=== PATIENT | female | born 1970 | race Caucasian/White ===

== ENCOUNTER → 2022-09-09 | Outpatient (CLI) | payer BC ==
--- NOTE | 2022-09-10 08:52 | MM ---
Reason for Exam: Screening (asymptomatic). Patient History: Menarche at age 10. First Full-Term at age 20. Premenopausal. 2005, Bilateral Reduction. Sister had breast cancer, age 49. Risk Values: Mey 5 year model risk: 2.1%. NCI Lifetime model risk: 15.7%. Tissue Density: The breast tissue is heterogeneously dense. This may lower the sensitivity of mammography. Findings: Analyzed By CAD. There is no suspicious group of microcalcifications in either breast. There are 3 asymmetries demonstrated within the right breast. The first is demonstrated on the CC view in the outer right breast at anterior depth. Another one is demonstrated within the outer right breast on the CC view at anterior to middle depth. The final on the right breast is demonstrated in the upper right breast on the MLO view at posterior depth. Additional focal asymmetry within the upper outer left breast at middle depth. Overall Assessment: Incomplete: need additional imaging evaluation, BI-RAD 0 Management: Diagnostic Mammogram of both breasts. A clinical breast exam by your physician is recommended on an annual basis and results should be correlated with mammographic findings. [facility] will attempt to contact patient to return for supplemental views and ultrasound if indicated. Electronically signed and approved by: Benjamin Bazan D.O.
== END | disposition home or self-care (01) ==
LOC: MERGE 08-21 12:40 → RADMAMWWP 15:34
PROVIDERS: ATTEND Family Medicine
DX: Z12.31 Encounter for screening mammogram for malignant neoplasm of breast (principal); Z80.3 Family history of malignant neoplasm of breast
CPT/HCPCS: 77067

== ENCOUNTER → 2022-09-16 | Outpatient (CLI) | payer BC ==
--- NOTE | 2022-09-16 08:52 | MM ---
Reason for Exam: Additional evaluation requested from abnormal screening. Last screening mammogram was performed less than 1 month ago. Patient History: Menarche at age 10. First Full-Term at age 20. Premenopausal. 2004, Bilateral Reduction. Sister had breast cancer, age 49. Risk Values: Mey 5 year model risk: 2.1%. NCI Lifetime model risk: 15.7%. Prior Study Comparison: 09/09/2022 Bilateral MG screening mammo w CAD, [facility]. Tissue Density: There are scattered fibroglandular densities. Findings: Analyzed By CAD. Right breast 6-7 cm from the nipple posterior depth measuring 9 mm , it is posterior nipple line on CC and slightly superior on MLO view. Left breast 2-3 cm from the nipple upper outer aspect measuring 15 mm. Overall Assessment: Incomplete: need additional imaging evaluation, BI-RAD 0 Management: Diagnostic Breast Ultrasound of both breasts. A clinical breast exam by your physician is recommended on an annual basis and results should be correlated with mammographic findings. This exam should not preclude additional follow-up of suspicious palpable abnormalities. Results were given to the patient verbally at the time of exam. Electronically signed and approved by: Emory Toscano DO
--- NOTE | 2022-09-16 09:36 | USB ---
Reason for Exam: Additional evaluation requested from abnormal screening. Patient History: Menarche at age 10. First Full-Term at age 20. Premenopausal. 2005, Bilateral Reduction. Sister had breast cancer, age 49. Risk Values: Mey 5 year model risk: 2.1%. NCI Lifetime model risk: 15.7%. Technique: Method: Targeted. Patient Position: Supine. Prior Study Comparison: 09/09/2022 Bilateral MG screening mammo w CAD, [facility]. Findings: The upper outer quadrant of the left breast, the periareolar of the right breast and the retroareolar of both breasts were scanned. Imaged: Ultrasound imaging of: All 4 quadrants, the retroareolar region and axilla. * Left breast 2:00 3 cm from the nipple is a hypoechoic irregular shaped oval mass measuring 1.4 x 1.2 x 0.9 cm mass. * Smaller adjacent lesion measuring up to 5 mm cyst immediately adjacent to it. * Right breast 12:00 6 cm nipple measuring up to 6 mm with possible thin internal septation.Imaged: Ultrasound imaging of: Area of concern, retroareolar region and axilla. * Left breast 2:00 3 cm from the nipple is a hypoechoic irregular shaped oval mass measuring 1.4 x 1.2 x 0.9 cm mass. * Smaller adjacent lesion measuring up to 5 mm cyst immediately adjacent to it. * Right breast 12:00 6 cm nipple measuring up to 6 mm with possible thin internal septation. Overall Assessment: Highly suggestive of malignancy, BI-RAD 5 Management: Ultrasound Core Biopsy of the left breast. Diagnostic Breast Ultrasound of the right breast in 6 months. * Biopsy of left breast 2:00 3 cm from nipple mass. Small lesion next to it could also be biopsied at this time. * Follow-up in 6 months for right breast suspected clustered cysts at 12:00 6 images from nipple. A clinical breast exam by your physician is recommended on an annual basis and results should be correlated with mammographic findings. This exam should not preclude additional follow-up of suspicious palpable abnormalities. Results were given to the patient verbally at the time of exam. Electronically signed and approved by: Emory Toscano DO
== END | disposition home or self-care (01) ==
LOC: RADMAMWWP 08:17
PROVIDERS: ATTEND Family Medicine
DX: N63.21 Unspecified lump in the left breast, upper outer quadrant (principal); N60.02 Solitary cyst of left breast; R92.8 Other abnormal and inconclusive findings on diagnostic imaging of breast; Z80.3 Family history of malignant neoplasm of breast
CPT/HCPCS: 77062; 77066

== ENCOUNTER → 2022-09-24 | Day surgery (SDC) | payer BC ==
--- NOTE | 2022-09-30 10:57 | MM ---
Reason for Exam: Post Procedure Mammogram. Last screening mammogram was performed less than 1 month ago. Patient History: Menarche at age 10. First Full-Term at age 20. Premenopausal. 2004, Bilateral Reduction. Sister had breast cancer, age 49. Risk Values: Mey 5 year model risk: 2.1%. NCI Lifetime model risk: 15.7%. Prior Study Comparison: 09/09/2022 Bilateral MG screening mammo w CAD, [facility]. 09/16/2022 Bilateral US breast workup limited GEMA, [facility]. 09/16/2022 Bilateral MG 3D work up w/cad G[facility], [facility]. Tissue Density: Left: There are scattered fibroglandular densities. Pathology Description: Location: 2 o'clock. Marker Left Behind. Needle Type: Celero Cores: 2 Gauge: 12 The procedure of ultrasound guided core biopsy was explained to the patient. Benefits, alternatives, and risks were discussed. An informed consent was then obtained. The patient was placed in supine positioning for imaging and for the procedure. Preprocedure ultrasound redemonstrates a lobulated heterogeneous hypoechoic mass at 2:00 position 3 cm distance from nipple measuring near 1.2 cm long axis. The overlying skin was prepped and draped in usual sterile fashion. Lidocaine is used as anesthetic into the skin and subcutaneous tissue up to area of concern in the left breast. Under ultrasound guidance, a vacuo assisted biopsy gun device was used to obtain 2 core samples. Following this, a biopsy clip was left in lesion. The patient tolerated the procedure well without any immediate complication. The patient was kept in the radiology department for short stay after the procedure and then discharged home in stable condition. Postprocedure mammogram: The patient was transferred to mammography for physician ordered post procedure mammogram for clip placement verification. Successful deployment of clip at the area of mammogram concern is noted Impression: Successful, uncomplicated ultrasound guided core biopsy of area of concern in the left breast, full pathology results to follow. Intermediate index of suspicion noted at time of procedure. Pathology Results: Result: Benign, Fibroadenoma. LEFT BREAST, 2:00, ULTRASOUND GUIDED NEEDLE CORE BIOPSY: Fibroadenoma. Overall Assessment: Benign Assessment: MG diagnostic mammo LT wo CAD. - Left: Benign, BI-RAD 2. Management: Diagnostic Mammogram of the left breast in 6 months. Electronically signed and approved by: Steffen Jordan M.D.
== END ==
LOC: RADUSWWP 10:15
PROVIDERS: ATTEND Family Medicine
DX: D24.2 Benign neoplasm of left breast (principal); Z80.3 Family history of malignant neoplasm of breast
CPT/HCPCS: 88305; 77065; 19083; A4648

== ENCOUNTER → 2023-04-09 | Outpatient (CLI) | payer BC ==
--- NOTE | 2023-04-09 15:50 | MM ---
Reason for Exam: Follow-up at short interval from prior study. Last screening mammogram was performed 7 month(s) ago. Patient History: Menarche at age 10. First Full-Term at age 20. Premenopausal. 09/24/2022, Benign US biopsy breast VAD LT on the left side. 2004, Bilateral Reduction. Sister had breast cancer, age 49. Risk Values: Mey 5 year model risk: 2.6%. NCI Lifetime model risk: 17.9%. Prior Study Comparison: 09/09/2022 Bilateral MG screening mammo w CAD, [facility]. 09/16/2022 Bilateral MG 3D work up w/cad [facility], [facility]. 09/24/2022 Left MG diagnostic mammo LT wo CAD., [facility]. Tissue Density: Right: The breast tissue is heterogeneously dense. This may lower the sensitivity of mammography. Findings: Analyzed By CAD. Postbiopsy changes within the left breast with biopsy clip present. No new suspicious masses, calcifications or distortions. Overall Assessment: Benign, BI-RAD 2 Management: Screening Mammogram of both breasts in 1 year. Results were given to the patient verbally at the time of exam. Patient should continue monthly self-breast exams. A clinical breast exam by your physician is recommended on an annual basis. This exam should not preclude additional follow-up of suspicious palpable abnormalities. Note on Mey scores and lifetime risk: 1. A Mey score greater than 3% is considered moderate risk. If this is the case, consider specialist referral to assess eligibility for a risk reducing agent. 2. If overall lifetime risk for the development of breast cancer is 20% or higher, the patient may qualify for future screening with alternating mammogram and breast MRI. Electronically signed and approved by: Emory Toscano DO
== END | disposition home or self-care (01) ==
LOC: RADUSWWP 14:41
PROVIDERS: ATTEND Family Medicine
DX: R92.331 Mammographic heterogeneous density, right breast (principal); Z80.3 Family history of malignant neoplasm of breast
CPT/HCPCS: 77062; 77066